=== PATIENT | male | born 1955 | race Caucasian/White ===

== ENCOUNTER → 2016-12-10 | Outpatient (CLI) | payer OTHER ==
[~2016-12-10] VITALS: Ht 165.1 cm; Wt 90.7 kg
[~2016-12-10] MED LIST: VESICARE 5 MG TA5 MG PO
--- NOTE | ~2016-12-10 | S ---
[facility] [address] [address] SURGICAL PATH RPT PROCEDURE Name: CAYETANO ALEXANDER Room #: REG ESAU M.Jim.#: [id number] Admission: 12/10/16 Date of : 51 Discharge: Report #: [id number] Path Case #: [id number] PATHOLOGY REPORT COLLECTION DATE: 12/10/2016 RECEIVED DATE: 12/10/2016 SUBMITTING PHYS: Dr. Oracio Dawson OTHER PHYS: Dr. Kadeem Fischer SPECIMEN(S) RECEIVED: A.Gastric body B.Esophageal stricture C.Esophageal nodule * * * * * * * * * * * * FINAL DIAGNOSIS: A. "Gastric body," biopsy: - Gastric mucosa with mild reactive changes and mild chronic inflammation. - Negative H. pylori immunohistochemical stain (block A1); control reacted appropriately. B. "Esophageal stricture," biopsy: - Esophageal squamous mucosa with reactive changes and mild acute and chronic inflammation including mildly increased intraepithelial eosinophils; no dysplasia seen. (see comment) C. "Esophageal nodule," biopsy: - Esophageal squamous mucosa and gastric cardiac type mucosa with reactive changes, mild acute and chronic inflammation including mildly increased intraepithelial eosinophils and focal intestinal metaplasia; no dysplasia seen. (see comment) COMMENT: Within specimen B and C, the mildly increased intraepithelial eosinophils are likely reflux esophagitis. There are up to 25 intraepithelial eosinophils per 1 high power field focally. 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 Clinical and endoscopic correlation is required. No dysplasia is seen in any of the biopsies. (CLW:; d/t: 12/11/16) PATHOLOGIST: Josie Castro M.D. REPORT ELECTRONICALLY SIGNED BY: Josie Castro M.D. DATE/TIME: 12/11/2016 16:23 * * * * * * * * * * * * GROSS PATHOLOGY: [facility] [address] [place] [address] SURGICAL PATH RPT PROCEDURE Name: CAYETANO ALEXANDER Room #: REG PATTILynda Law#: [id number] Admission: 12/10/16 Date of : 51 Discharge: Report #: [id number] Path Case #: [id number] A. Received in formalin labeled "Cayetano Alexander, gastric body, R/O H. pylori," are two segments of yoon soft tissue measuring 0.5 x 0.4 x 0.1 cm in aggregate dimensions and ranging from 0.2 to 0.5 cm in maximum dimension. The specimen is submitted entirely in cassette A1. B. Received in formalin labeled "Cayetano Alexander, esophageal stricture," are two segments of yoon soft tissue measuring 0.5 x 0.4 x 0.1 cm in aggregate dimensions and ranging from 0.4 to 0.5 cm in maximum dimension. The specimen is submitted entirely in cassette B1. C. Received in formalin labeled "Cayetano Alexander, esophageal nodule," are three segments of yoon soft tissue measuring 0.5 x 0.4 x 0.1 cm in aggregate dimensions and ranging from 0.2 to 0.3 cm in maximum dimension. The specimen is submitted entirely in cassette C1. (CAA; 12/10/2016) CLINICAL HISTORY: Pre-op diagnosis: Dysphagia Post-op diagnosis: Gastritis, esophageal stricture INITIAL CPT CODE(S): A; 48643, 22203 B; 90437 C; 74944 Professional services performed by [facility] at [facility] [address], [place] [address] Technical services performed by [facility] at [address] [place] [address], [address], [place] [address]. [facility] [place] [address] PHONE: [phone] DIRECTOR: Fredy Pascual M.D. * * * END OF REPORT * * *
== END | disposition home or self-care (01) ==
LOC: GI 06:56
DX: K22.2 Esophageal obstruction (principal); K22.8 Other specified diseases of esophagus; K29.50 Unspecified chronic gastritis without bleeding; K21.0 Gastro-esophageal reflux disease with esophagitis; Z98.890 Other specified postprocedural states
CPT/HCPCS: 62110; 62900